=== PATIENT | female | born 1995 | race Caucasian/White ===

== ENCOUNTER 2019-01-18 05:11 | Emergency (ER) | payer BC ==
[2019-01-18] MEDS ORDERED: Famotidine 20 MG Tab PO ONE (05:43)
--- NOTE | 2019-01-18 05:50 | EDM.PDOC ---
ED HPI GENERAL MEDICAL PROBLEM - General Chief Complaint: Abdominal Pain Stated Complaint: abdominal pain Time Seen by Provider: 01/18/19 05:33 Source of Information: Reports: Patient, RN Notes Reviewed - History of Present Illness INITIAL COMMENTS - FREE TEXT/NARRATIVE: upper mid abd burning pain for the last 3 days. Has had this before but more bothersome the last 2 to 3 days. Occasional nausea. No vomiting or diarrhea. No melena or hematochezia. No hx of PUD. No chest pain or difficult breathing. Does not radiate to her back. Has been eating and drinking OK. Epigastric Pain Score (Numeric/FACES): 6 - Related Data Allergies Allergy/AdvReac Type Severity Reaction Status Date / Time No Known Allergies Allergy Verified 01/18/19 05:23 Home Meds: Home Meds Omeprazole 20 mg PO BIDAC #30 cap.sr 01/18/19 [Rx] Venlafaxine [Effexor XR] 150 mg PO DAILY 01/18/19 [History] Past Medical History - Past Health History Medical/Surgical History: Denies Medical/Surgical History Social & Family History - Tobacco Use Smoking Status *Q: Never Smoker ED ROS GENERAL - Review of Systems Review Of Systems: See Below HEENT: Reports: No Symptoms Respiratory: Denies: Shortness of Breath Cardiovascular: Denies: Chest Pain GI/Abdominal: Reports: Abdominal Pain, Nausea. Denies: Hematochezia, Melena, Vomiting Musculoskeletal: Denies: Back Pain Skin: Reports: No Symptoms Neurological: Reports: No Symptoms ED EXAM, GI/ABD - Physical Exam Exam: See Below General Appearance: Alert, No Apparent Distress Eyes: Bilateral: Normal Appearance Throat/Mouth: Normal Inspection, Normal Oropharynx Head: Atraumatic Neck: Supple Respiratory/Chest: No Respiratory Distress, Lungs Clear, Normal Breath Sounds Cardiovascular: Regular Rate, Rhythm GI/Abdominal Exam: Soft, Tender (very mild tenderness upper mid abd, remainder of abd nontender). No: Guarding, Rebound Back Exam: No: CVA Tenderness (L), CVA Tenderness (R) Extremities: Normal Inspection, Normal Range of Motion Neurological: Alert, Oriented, No Motor/Sensory Deficits Skin Exam: Warm, Dry, Normal Color Course - Vital Signs Last Recorded V/S: Last Vital Signs Temp 98.7 F 01/18/19 05:20 Pulse 80 01/18/19 05:20 Resp 16 01/18/19 05:20 BP 133/86 01/18/19 05:20 Pulse Ox 98 01/18/19 05:20 - Orders/Labs/Meds Meds: Medications Discontinued Medications Generic Name Dose Route Start Last Admin Trade Name Alexa PRN Reason Stop Dose Admin Famotidine 20 mg 01/18/19 05:43 Pepcid PO 01/18/19 05:44 ONETIME ONE Departure - Departure Time of Disposition: 05:44 Disposition: Home, Self-Care 01 Condition: Fair Clinical Impression: Gastritis Qualifiers: Gastritis type: unspecified gastritis Chronicity: acute Gastritis bleeding: without bleeding Qualified Code(s): K29.00 - Acute gastritis without bleeding - Discharge Information Prescriptions: Omeprazole 20 mg PO BIDAC #30 cap.sr Instructions: Gastritis, Adult, [id number] Referrals: Monica Benavides, [facility] [Primary Care Provider] - Forms: ED Department Discharge Additional Instructions: Avoid spicy foods for now, you have been given Pepcid 20 mg orally while here in the ED. Start omeprazole 20mg this morning and continue twice daily for 2 weeks or until gone. You may continue to use intermittent tums if needed for severe discomfort. Follow-up with Monica at the clinic in about one week for recheck, call for appointment. Return to ED as needed if symptoms worsening in any way.
== END 2019-01-18 05:55 | disposition home or self-care (01) ==
LOC: JD.ED 05:11
DX: K29.00 Acute gastritis without bleeding (principal); Z79.899 Other long term (current) drug therapy
CPT/HCPCS: 99282; 99283

== ENCOUNTER 2021-04-06 17:06 | Inpatient (IN) | payer BC ==
[2021-04-06] MEDS ORDERED: Nalbuphine 10 MG/1 ML Vial IVPUSH PRN (17:55)
[2021-04-06] MEDS ORDERED: Sodium Chloride 0.9% 10 ML Syringe FLUSH PRN (17:55)
[2021-04-06] MEDS ORDERED: Lidocaine 1% 50 ML MDV INJECT PRN (17:55)
[2021-04-06] MEDS ORDERED: Oxytocin/Lactated Ringers 10 UNIT/1,000 ML BAG IV SCH ×2 (18:00)
--- NOTE | 2021-04-06 20:54 | PCM.LDHP ---
L&D History of Present Illness - General Date of Service: 04/06/21 Admit Problem/Dx: Patient Status Order with Admit Dx/Problem 04/06/21 17:15 Patient Status [ADT] Routine 04/06/21 17:56 Patient Status [ADT] Routine Admission Diagnosis/Problem Admission Diagnosis/Problem 04/06/21 20:46 Nelly is a 25-year-old 1 para 0 female admitted on the evening of 04/06/2021 at 38-3/7 weeks gestational age with an PHU of 04/17/2021 in early labor with history of spontaneous rupture membranes occurring at 1400 hrs. today. Source of Information: Patient History Limitations: Reports: No Limitations - History of Present Illness Introduction:: Nelly is a 25-year-old 1 para 0 female admitted on the evening of 04/06/2021 at 38-3/7 weeks gestational age with an PHU of 04/17/2021 in early labor with history of spontaneous rupture membranes occurring at 1400 hrs. today. Is yandy every 3 to 5 minutes, mild in nature. Patient is tolerating these very well. She continues to lose amniotic fluid which is clear in nature. heart tones are reassuring. 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 Patient had menarche at the usual age of [age]. Cycles q. months. PHU of 04/17/2021 is based upon a certain last menstrual period started 07/11/2020 and supported by ultrasound evaluation. She denies any STIs. She denies any abnormal Pap smears. She is sexually active and was denies any control at the time of conception. course: First visit was at 10 weeks and 1 day on 09/20/2020. Patient was seen on a very regular basis throughout the . Weight gain was from 205 pounds to approximately 212 pounds. Fundal height growth was appropriate. Vital signs remained stable throughout the course. Ultrasounds x3 were consistent with dates. Baby's been active. No problems with the noted. Laboratory testing in : Blood is a negative with negative NM screen. First hemoglobin was 10.9. Platelets 248,000. She is rubella immune. RPR was nonreactive for IgM and IgG antibodies. Hepatitis B surface antigen was nonreactive as was hepatitis C. Chlamydia and gonorrhea were not detected on evaluations. Second trimester labs showed a hemoglobin of 10.9 with platelets of 248,000. 1 hour GTT is 151. 3-hour GTT value given in the chart was 136. The results of her total 3-hour GTT are not in the chart therefore not available but patient reports she is not a gestational diabetic. TSH on 12/13/2014 was 4.46. Group B strep screen was negative. Past medical history: 1. Depressionon medicationsEffexor presently. Past surgical history: 1. 5 nevi was removed for dysplastic appearance. 2. Tympanostomy with tube placement 3. [place] tooth extraction Family history: Mother and father are alive in generally good health. Sister and brother with no concerns. Maternal grandfather pancreatic cancer. Paternal grandmother with no known problems. Paternal grandfathers had a heart attack but is alive. Maternal uncle with melanoma and a great aunt on maternal side with melanoma. Social history: Patient is single. She is in his constant relationship with Paddy Calvo. She works at [employer] here in [employer]. She lives in [place]. She does not use any significant alcohol, drugs or tobacco. Review of systems: In general patient has no complaints. Is reporting leakage of fluid that is clear in nature. Some contractions noted. Baby has been active. Skin: Negative Lungs: No infectious symptoms or shortness of breath Cardiovascular: No chest pain or exercise intolerance Breasts: Changes associated with . No lumps, changes in size, pain, dimpling, discharge or axillary or supraclavicular concerns. GI: Negative : Body habitus changes associated with . Musculoskeletal: Negative Neurological: Negative In general the patient is well-developed, well-nourished, pleasant female of stated age in no acute distress. Skin is warm dry without lesions. HEENT, neck and back within normal limits. Lungs are clear with good breath sounds in all lung momin. Cardiovascular exam shows regular and rhythm without murmurs. Breast exam is deferred have been done early in the it is not repeated today as it was normal. Abdomen is gravid with a fundal height of 37 cm on last evaluation on 03/27/2021. Vertex presentation noted at that time. Genital per digital exam upon admission shows cervix to be 2+ centimeters, 80% effaced, -2 station, posterior position, soft, cephalic presentation. heart tones are reassuring. Extremities and neurological exam are grossly within normal limits. 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: Psychiatric History: Reports: Depression - Infectious Disease History Infectious Disease History: Reports: Novel Coronavirus Other Infectious Disease History: COVID-13 february 2021 - Past Surgical History HEENT Surgical History: Reports: Myringotomy w Tube(s), Oral Surgery Other HEENT Surgeries/Procedures: wisdom teeth 2019 Social & Family History - Family History Family Medical History: No Pertinent Family History - Tobacco Use Tobacco Use Status *Q: Never Tobacco User Second Hand Smoke Exposure: No H&P Review of Systems - Review of Systems: Review Of Systems: See Below L&D Exam - Exam Exam: See Below - Vital Signs Vital Signs: Last Vital Signs Temp 36.8 C 04/06/21 17:15 Pulse 84 04/06/21 18:30 Resp BP 118/73 04/06/21 17:15 Pulse Ox Weight: 93.894 kg - Patient Data Lab Results Last 24 hrs: Laboratory Results - last 24 hr 04/06/21 Range/Units 18:19 WBC 6.60 (3.98-10.04) K/mm3 RBC 4.10 (3.98-5.22) M/mm3 Hgb 10.3 L (11.2-15.7) gm/dl Hct 31.8 L (34.1-44.9) % MCV 77.6 L (79.4-94.8) fl MCH 25.1 L (25.6-32.2) pg MCHC 32.4 (32.2-35.5) g/dl RDW Std Deviation 39.4 (36.4-46.3) fL Plt Count 263 (182-369) K/mm3 MPV 8.9 L (9.4-12.3) fl Neut % (Auto) 66.0 (34.0-71.1) % Lymph % (Auto) 22.0 (19.3-51.7) % Mcmullen % (Auto) 10.6 (4.7-12.5) % Eos % (Auto) 0.8 (0.7-5.8) Baso % (Auto) 0.3 (0.1-1.2) % Neut # (Auto) 4.36 (1.56-6.13) K/mm3 Lymph # (Auto) 1.45 (1.18-3.74) K/mm3 Mcmullen # (Auto) 0.70 H (0.24-0.36) K/mm3 Eos # (Auto) 0.05 (0.04-0.36) K/mm3 Baso # (Auto) 0.02 (0.01-0.08) K/mm3 Result Diagrams: 04/06/21 18:19 - Problem List (1) 38 weeks gestation of SNOMED Code(s): 65913078 ICD Code: Z3A.38 - 38 WEEKS GESTATION OF Status: Acute Current Visit: Yes (2) Spontaneous rupture of amniotic membranes SNOMED Code(s): 949745406 ICD Code: [id number] - Status: Acute Current Visit: Yes Problem List Initiated/Reviewed/Updated: Yes Orders Last 24hrs: Active Orders 24 hr Category Date Time Status Patient Status [ADT] Routine ADT 04/06/21 17:56 Active Activity as Tolerated [RC] PFP Care 04/06/21 17:56 Active Communication Order [RC] ASDIRECTED Care 04/06/21 17:56 Active Heart Tones [RC] ASDIRECTED Care 04/06/21 17:56 Active Non Stress Test [RC] PER UNIT ROUTINE Care 04/06/21 17:15 Active Notify Provider [RC] PFP Care 04/06/21 17:56 Active Notify Provider [RC] PRN Care 04/06/21 17:56 Active Peripheral IV Care [RC] Q4HR Care 04/06/21 17:56 Active Urinary Catheter Assessment [RC] ASDIRECTED Care 04/06/21 17:55 Active Vital Signs [RC] PER UNIT ROUTINE Care 04/06/21 17:15 Active Regular Diet [DIET] Diet 04/06/21 Dinner Active BLOOD BANK HOLD SPECIMEN [BBK] Routine Lab 04/06/21 17:55 Ordered RAPID PLASMA REAGIN,RPR [CHEM] Routine Lab 04/06/21 18:19 Received Lactated Ringers [Ringers, Lactated] 1,000 ml Med 04/06/21 18:00 Active IV ASDIRECTED Lidocaine 1% [Xylocaine 1%] Med 04/06/21 17:55 Active 50 ml INJECT ONETIME PRN Nalbuphine [Nubain] Med 04/06/21 17:55 Active 10 mg IVPUSH Q2H PRN Oxytocin/Lactated Ringers [Pitocin in LR 10 Units/1,000 Med 04/06/21 18:00 Active ML] 10 unit in 1,000 ml IV .CONTINUOUS Oxytocin/Lactated Ringers [Pitocin in LR 10 Units/1,000 Med 04/06/21 18:00 Active ML] 10 unit in 1,000 ml IV TITRATE Sodium Chloride 0.9% [Saline Flush] Med 04/06/21 17:55 Active 10 ml FLUSH ASDIRECTED PRN Electronic Heart Tones Ext w TOCO [WOMSER] Oth 04/06/21 17:56 Ordered Routine Electronic Heart Tones Internal [WOMSER] Per Unit Oth 04/06/21 17:56 Ordered Routine Peripheral IV Insertion Adult [OM.PC] Routine Oth 04/06/21 17:56 Ordered Resuscitation Status Routine Resus Stat 04/06/21 17:15 Ordered Medication Orders Lactated Ringer's (Ringers, Lactated) 1,000 mls @ 100 mls/hr IV ASDIRECTED DEUCE Oxytocin/Lactated Ringer's (Pitocin In Lr 10 Units/1,000 Ml) 10 unit in 1,000 mls @ 500 mls/hr IV .CONTINUOUS DEUCE Oxytocin/Lactated Ringer's (Pitocin In Lr 10 Units/1,000 Ml) 10 unit in 1,000 mls @ 12 mls/hr IV TITRATE DEUCE; Protocol Lidocaine HCl (Lidocaine 1% 50 Ml Mdv) 50 ml INJECT ONETIME PRN PRN Reason: Other Nalbuphine HCl (Nalbuphine 10 Mg/1 Ml Vial) 10 mg IVPUSH Q2H PRN PRN Reason: Pain Sodium Chloride (Sodium Chloride 0.9% 10 Ml Syringe) 10 ml FLUSH ASDIRECTED PRN PRN Reason: Keep Vein Open Assessment/Plan Comment:: Casie Villegas is a 25-year-old 1 para 0 female admitted on the evening of 04/06/2021 at 38-3/7 weeks gestational age with an PHU of 04/17/2021 in early labor with history of spontaneous rupture membranes occurring at 1400 hrs. today. 2. Group B strep negative 3. Patient plans to breast-feed. 4. Patient is open for analgesiaepidural is okay with her. 5. Relatively low risk . Plan: 1. Anticipate 2. If no significant labor is noted by approximately 12 hours after spontaneous rupture membranes would recommend augmentation of labor with Pitocin. 3. Routine admission labs including Covid testing, CBC, RPR. 4. Epidural if patient desires. 5. Support breast-feeding decision.
[2021-04-06] MEDS: Lactated Ringers 1,000 ML IV SCH ×2 (21:05→22:07)
[2021-04-06] MEDS ORDERED: diphenhydrAMINE 50 MG/ML SDV IVPUSH PRN (21:06)
[2021-04-06] MEDS ORDERED: ePHEDrine 50 MG/ML SDV IVPUSH PRN (21:06)
[2021-04-06] MEDS ORDERED: fentaNYL 100 MCG/2 ML SDV EPIDUR PRN (21:06)
--- NOTE | 2021-04-06 21:20 | PCM.PREANE ---
Preanesthetic Assessment - Anesthesia/Transfusion/Family Hx Anesthesia History: No Prior Anesthesia Transfusion History: No Prior Transfusion(s) - Review of Systems General: No Symptoms Pulmonary: No Symptoms Cardiovascular: No Symptoms Gastrointestinal: No Symptoms Neurological: No Symptoms Other: Reports: None - Physical Assessment Vital Signs: Last Vital Signs Temp 98.2 F 04/06/21 17:15 Pulse 84 04/06/21 18:30 Resp BP 118/73 04/06/21 17:15 Pulse Ox Height: 1.57 m Weight: 93.894 kg ASA Class: 2 Mental Status: Alert & Oriented x3 Airway Class: Mallampati = 3 Dentition: Reports: Normal Dentition ROM/Head Extension: Full Lungs: Clear to Auscultation, Normal Respiratory Effort Cardiovascular: Regular Rate, Regular Rhythm - Lab Values: Laboratory Last Values WBC 6.60 K/mm3 (3.98-10.04) 04/06/21 18:19 RBC 4.10 M/mm3 (3.98-5.22) 04/06/21 18:19 Hgb 10.3 gm/dl (11.2-15.7) L 04/06/21 18:19 Hct 31.8 % (34.1-44.9) L 04/06/21 18:19 MCV 77.6 fl (79.4-94.8) L 04/06/21 18:19 MCH 25.1 pg (25.6-32.2) L 04/06/21 18:19 MCHC 32.4 g/dl (32.2-35.5) 04/06/21 18:19 RDW Std Deviation 39.4 fL (36.4-46.3) 04/06/21 18:19 Plt Count 263 K/mm3 (182-369) 04/06/21 18:19 MPV 8.9 fl (9.4-12.3) L 04/06/21 18:19 Neut % (Auto) 66.0 % (34.0-71.1) 04/06/21 18:19 Lymph % (Auto) 22.0 % (19.3-51.7) 04/06/21 18:19 [place] % (Auto) 10.6 % (4.7-12.5) 04/06/21 18:19 Eos % (Auto) 0.8 (0.7-5.8) 04/06/21 18:19 Baso % (Auto) 0.3 % (0.1-1.2) 04/06/21 18:19 Neut # (Auto) 4.36 K/mm3 (1.56-6.13) 04/06/21 18:19 Lymph # (Auto) 1.45 K/mm3 (1.18-3.74) 04/06/21 18:19 [place] # (Auto) 0.70 K/mm3 (0.24-0.36) H 04/06/21 18:19 Eos # (Auto) 0.05 K/mm3 (0.04-0.36) 04/06/21 18:19 Baso # (Auto) 0.02 K/mm3 (0.01-0.08) 04/06/21 18:19 RPR Non-reactive (NONREACTIVE) 04/06/21 18:19 - Allergies Allergies/Adverse Reactions: Allergies Allergy/AdvReac Type Severity Reaction Status Date / Time No Known Allergies Allergy Verified 01/18/19 05:23 - Acknowledgements Anesthesia Type Planned: Epidural Pt an Appropriate Candidate for the Planned Anesthesia: Yes Alternatives and Risks of Anesthesia Discussed w Pt/Guardian: Yes Pt/Guardian Understands and Agrees with Anesthesia Plan: Yes PreAnesthesia Questionnaire - Past Health History Medical/Surgical History: Denies 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: Psychiatric History: Reports: Depression - Infectious Disease History Infectious Disease History: Reports: Novel Coronavirus Other Infectious Disease History: COVID-13 february 2021 - Past Surgical History HEENT Surgical History: Reports: Myringotomy w Tube(s), Oral Surgery Other HEENT Surgeries/Procedures: wisdom teeth 2019 - SUBSTANCE USE Tobacco Use Status *Q: Never Tobacco User Second Hand Smoke Exposure: No - HOME MEDS Home Medications: Home Meds Venlafaxine [Effexor XR] 150 mg PO DAILY 01/18/19 [History] Pnv No.95/Ferrous Fum/Folic AC [ Vitamin Tablet] 1 each PO DAILY 04/06/21 [History] - CURRENT (IN HOUSE) MEDS Current Meds: Current Medications Diphenhydramine HCl (Diphenhydramine 50 Mg/Ml Sdv) 25 mg IVPUSH Q6H PRN PRN Reason: pruritis Ephedrine Sulfate (Ephedrine 50 Mg/Ml Sdv) 5 mg IVPUSH ASDIRECTED PRN PRN Reason: Hypotension Fentanyl (Fentanyl 100 Mcg/2 Ml Sdv) 100 mcg EPIDUR Q3H PRN PRN Reason: Pain Fentanyl/Bupivacaine HCl (Bupivacaine/Fentanyl/Ns 100 Ml Bag) 100 ml EPIDUR ASDIRECTED PRN PRN Reason: Pain Lactated Ringer's (Ringers, Lactated) 1,000 mls @ 100 mls/hr IV ASDIRECTED DEUCE Last Admin: 04/06/21 21:05 Dose: 900 mls/hr Documented by: Oxytocin/Lactated Ringer's (Pitocin In Lr 10 Units/1,000 Ml) 10 unit in 1,000 mls @ 500 mls/hr IV .CONTINUOUS DEUCE Oxytocin/Lactated Ringer's (Pitocin In Lr 10 Units/1,000 Ml) 10 unit in 1,000 mls @ 12 mls/hr IV TITRATE DEUCE; Protocol Lidocaine HCl (Lidocaine 1% 50 Ml Mdv) 50 ml INJECT ONETIME PRN PRN Reason: Other Nalbuphine HCl (Nalbuphine 10 Mg/1 Ml Vial) 10 mg IVPUSH Q2H PRN PRN Reason: Pain Sodium Chloride (Sodium Chloride 0.9% 10 Ml Syringe) 10 ml FLUSH ASDIRECTED PRN PRN Reason: Keep Vein Open
[2021-04-06] MEDS: Bupivacaine/fentaNYL/NS 100 ML Bag EPIDUR PRN (21:29)
[2021-04-07] MEDS ORDERED: Lidocaine 1.5% with EPINEPHrine 1:200,000 5 ML Amp ONE (02:00)
[2021-04-07] MEDS: Bupivacaine/fentaNYL/NS 100 ML Bag EPIDUR PRN (04:58)
[2021-04-07] MEDS ORDERED: Benzocaine/Menthol 20%-0.5% Spray 78 GM Cannister TOP PRN (12:55)
[2021-04-07] MEDS ORDERED: Acetaminophen 325 MG Tab PO PRN (12:55)
[2021-04-07] MEDS ORDERED: Ibuprofen 600 MG Tab PO PRN (12:55)
[2021-04-07] MEDS ORDERED: Docusate Sodium 100 MG Cap PO PRN (12:55)
[2021-04-07] MEDS ORDERED: Witch Hazel Medicated Pads 40/Jar TOP PRN (12:55)
--- NOTE | 2021-04-07 13:23 | PCM.SN.2 ---
- Free Text/Narrative Note: Delivery note: Stage I: Nelly is a 25-year-old 1 para now para 1-0-0-1 female admitted on the evening of 04/06/2021 at 38-3/7 weeks gestational age with an PHU of 04/17/2021 in early labor with history of spontaneous rupture membranes occurring at 1400 hrs on 04/06/2021. After monitoring for approximately 8 to 12 hours minimal contraction activity was noted and patient was started on Pitocin augmentation attempting to achieve delivery of the baby within 24 hours of the suspected SROM. She progressed slowly but steadily in labor and became completely dilated by approximately 0800 hrs. on 04/07/2021. Patient pushed for proxy 1-1/2 hours. She had an epidural placed for labor analgesia. She had goo d results with this. heart tones remained normal throughout the labor course. Stage II: Nelly delivered a viable, nwesome, male named Wade Saldivar at 0933 hours on 04/07/2021. The baby delivered in a direct occiput anterior position. There was external restitution to the right. Anterior shoulder was then delivered with gentle downward traction and posterior shoulder delivered w ith gentle upward traction. The baby then completely delivered and was placed on mom's abdomen. The baby had good heart rate, tone but was not crying aggressively so the cord was clamped x2 relatively quickly and cut by the baby's father. Baby was taken to the warmer for evaluation. O2 blow-by was used. Baby had Apgars of 4, 7 and 8 at 1 5 and 10 minutes respectively. The baby weighed 3657 g (8 pounds 1 ounce. Length was 19.5 inches. The umbilical cord had 3 vessels. Cord blood was obtained. Pitocin was increased to 500 cc an hour after delivery of the baby to facilitate increase uterine tone and decrease likelihood of bleeding. Stage III: The placenta delivered at 0945 hrs. in a [place] presentation. It appeared intact and complete and was discarded per patient desire. A small right-sided superficial vaginal laceration was repaired using 6 interrupted stitches of 3-0 Monocryl. Labor epidural analgesia was used for vaginal laceration anesthesia with good results. Patient tolerated this very well. Estimated blood loss was 200 cc. Condition: Good.
--- NOTE | 2021-04-07 16:28 | PCM48HPAN ---
Post Anesthesia Note - EVALUATION WITHIN 48HRS OF ANESTHETIC Vital Signs in Normal Range: Yes Patient Participated in Evaluation: Yes Respiratory Function Stable: Yes Airway Patent: Yes Cardiovascular Function Stable: Yes Hydration Status Stable: Yes Pain Control Satisfactory: Yes Nausea and Vomiting Control Satisfactory: Yes Mental Status Recovered: Yes Vital Signs: Last Vital Signs Temp 96.8 F L 04/07/21 13:52 Pulse 56 L 04/07/21 13:52 Resp 17 04/07/21 13:52 BP 124/73 04/07/21 13:52 Pulse Ox 99 04/07/21 13:52 - COMMENTS/OBSERVATIONS Free Text/Narrative:: No apparent anesthesia complications noted
--- NOTE | 2021-04-08 04:34 | PCM.SN.2 ---
- Free Text/Narrative Note: note: Patient is doing well in the period. Minimal lochia, voiding well, ambulated without problems. Nursing without concerns. Baby is in level 2 but doing well. Patient is afebrile, vital signs are stable Abdomen is flat, soft, uterus is below the umbilicus and is firm and nontender. Legs are nontender. Assessment: recovery going well. Plan: Routine care. Patient be discharged home within the next 24-48 hours.
--- NOTE | 2021-04-08 07:23 | PCM.DCSUM1 ---
Discharge Summary - Hospital Course Free Text/Narrative:: Stage I: Nelly is a 25-year-old 1 para now para 1-0-0-1 female admitted on the evening of 04/06/2021 at 38-3/7 weeks gestational age with an PHU of 04/17/2021 in early labor with history of spontaneous rupture membranes occurring at 1400 hrs on 04/06/2021. After monitoring for approximately 8 to 12 hours minimal contraction activity was noted and patient was started on Pitocin augmentation attempting to achieve delivery of the baby within 24 hours of the suspected SROM. She progressed slowly but steadily in labor and became completely dilated by approximately 0800 hrs. on 04/07/2021. Patient pushed for proxy 1-1/2 hours. She had an epidural placed for labor analgesia. She had good results with this. heart tones remained normal throughout the labor course. Stage II: Nelly delivered a viable, newsome, male named Wade Saldivar at 0933 hours on 04/07/2021. The baby delivered in a direct occiput anterior position. There was external restitution to the right. Anterior shoulder was then delivered with gentle downward traction and posterior shoulder delivered with gentle upward traction. The baby then completely delivered and was placed on mom's abdomen. The baby had good heart rate, tone but was not crying aggressively so the cord was clamped x2 relatively quickly and cut by the baby's father. Baby was taken to the warmer for evaluation. O2 blow-by was used. Baby had Apgars of 4, 7 and 8 at 1 5 and 10 minutes respectively. The baby weighed 3657 g (8 pounds 1 ounce. Length was 19.5 inches. The umbilical cord had 3 vessels. Cord blood was obtained. Pitocin was increased to 500 cc an hour after delivery of the baby to facilitate increase uterine tone and decrease likelihood of bleeding. Stage III: The placenta delivered at 0945 hrs. in a [place] presentation. It appeared intact and complete and was discarded per patient desire. A small right-sided superficial vaginal laceration was repaired using 6 interrupted stitches of 3-0 Monocryl. Labor epidural analgesia was used for vaginal laceration anesthesia with good results. Patient tolerated this very well. Estimated blood loss was 200 cc. patient has done very well. She is nursing and pumping well. Vital signs have been stable. She is afebrile. She is voiding well, has minimal lochia. She is ambulating well and is feeling fairly well. Baby is being transferred to [place] because of a prolonged QT interval and some tachycardia which is to be evaluated by cardiology. Patient and are anxious over this information. Otherwise that her condition is good. Diagnosis: Stroke: No - Discharge Data Discharge Date: 04/08/21 Discharge Disposition: Home, Self-Care 01 Condition: Good - Referral to Home Health Primary Care Physician: Monica Benavides NP - Discharge Diagnosis/Problem(s) (1) 38 weeks gestation of SNOMED Code(s): 33338441 ICD Code: Z3A.38 - 38 WEEKS GESTATION OF Status: Acute Current Visit: Yes (2) Spontaneous rupture of amniotic membranes SNOMED Code(s): 983461367 ICD Code: [id number] - Status: Acute Current Visit: Yes - Patient Instructions Diet: Regular Diet as Tolerated (Nursing diet with increased calories and calcium as discussed.) Activity: As Tolerated (No intercourse or tampons until bleeding resolves.) Driving: May Drive Today Showering/Bathing: May Shower (May take a bath) Notify Provider of: Fever, Increased Pain, Swelling and Redness, Nausea and/or Vomiting - Discharge Plan Home Medications: Home Meds Venlafaxine [Effexor XR] 150 mg PO DAILY 01/18/19 [History] Pnv No.95/Ferrous Fum/Folic AC [ Vitamin Tablet] 1 each PO DAILY 04/06/21 [History] Acetaminophen [Tylenol] 650 mg PO Q4H PRN tablet 04/08/21 [Rx] Ibuprofen [Motrin] 600 mg PO Q4H PRN tablet 04/08/21 [Rx] - Discharge Summary/Plan Comment DC Time >30 min.: No Total # of Minutes for Discharge Time: 10 Discharge Summary/Plan Comment: Discharge instructions: 1. Discharge home 2. Diet, activity and follow-up discussed with patient. Recommend nursing diet with increased calories and calcium. 3. Precautions given concern increased pain, bleeding, temperature, signs/symptoms of DVT/PE. 4. Medications per home medication was printed, discussed with and given to the patient. 5. Return to clinic-Dr. Jamil at [facility] within 1 week. Diagnosis: Term -delivered -baby has prolonged QT interval and is being transferred to [facility] in [place], [place]. Condition: Good - Patient Data Vitals - Most Recent: Last Vital Signs Temp 36.6 C 04/08/21 03:01 Pulse 69 04/08/21 03:01 Resp 16 04/08/21 03:01 BP 98/62 04/08/21 03:02 Pulse Ox 99 04/08/21 03:01 Weight - Most Recent: 93.894 kg Med Orders - Current: Current Medications Acetaminophen (Acetaminophen 325 Mg Tab) 650 mg PO Q4H PRN PRN Reason: mild pain or fever Benzocaine/Menthol (Benzocaine/Menthol 20%-0.5% Jackson 78 Gm Cannister) 0 gm TOP ASDIRECTED PRN PRN Reason: Perineal Comfort Measure Last Admin: 04/07/21 14:31 Dose: 1 canister Documented by: Docusate Sodium (Docusate Sodium 100 Mg Cap) 100 mg PO BID PRN PRN Reason: Constipation Ibuprofen (Ibuprofen 600 Mg Tab) 600 mg PO Q4H PRN PRN Reason: Mild pain or fever Prenat Multivit/[place]/Iron/Folic Ac ( Multivitamin With Calcium/Folic Acid/Iron Tab) 1 each PO DAILY DEUCE Venlafaxine HCl (Venlafaxine 75 Mg Cap.Er) 150 mg PO DAILY DEUCE [place] ([place] Medicated Pads 40/Jar) 1 pad TOP ASDIRECTED PRN PRN Reason: Perineal Comfort Measure Last Admin: 04/07/21 14:32 Dose: 1 container Documented by: Discontinued Medications Diphenhydramine HCl (Diphenhydramine 50 Mg/Ml Sdv) 25 mg IVPUSH Q6H PRN PRN Reason: pruritis Ephedrine Sulfate (Ephedrine 50 Mg/Ml Sdv) 5 mg IVPUSH ASDIRECTED PRN PRN Reason: Hypotension Fentanyl (Fentanyl 100 Mcg/2 Ml Sdv) 100 mcg EPIDUR Q3H PRN PRN Reason: Pain Last Admin: 04/06/21 21:40 Dose: 100 mcg Documented by: Fentanyl/Bupivacaine HCl (Bupivacaine/Fentanyl/Ns 100 Ml Bag) 100 ml EPIDUR ASDIRECTED PRN PRN Reason: Pain Last Admin: 04/07/21 04:58 Dose: 100 ml Documented by: Lactated Ringer's (Ringers, Lactated) 1,000 mls @ 100 mls/hr IV ASDIRECTED DEUCE Last Admin: 04/06/21 22:07 Dose: 900 mls/hr Documented by: Oxytocin/Lactated Ringer's (Pitocin In Lr 10 Units/1,000 Ml) 10 unit in 1,000 mls @ 500 mls/hr IV .CONTINUOUS DEUCE Last Infusion: 04/07/21 11:00 Dose: 100 mls/hr Documented by: Oxytocin/Lactated Ringer's (Pitocin In Lr 10 Units/1,000 Ml) 10 unit in 1,000 mls @ 12 mls/hr IV TITRATE DEUCE; Protocol Last Titration: 04/07/21 09:40 Dose: 83.33 munits/min, 499.98 mls/hr Documented by: Lidocaine HCl (Lidocaine 1% 50 Ml Mdv) 50 ml INJECT ONETIME PRN PRN Reason: Other Nalbuphine HCl (Nalbuphine 10 Mg/1 Ml Vial) 10 mg IVPUSH Q2H PRN PRN Reason: Pain Sodium Chloride (Sodium Chloride 0.9% 10 Ml Syringe) 10 ml FLUSH ASDIRECTED PRN PRN Reason: Keep Vein Open
[2021-04-08] MEDS ORDERED: Venlafaxine 75 MG Cap.ER PO SCH (09:00)
[2021-04-08] MEDS ORDERED: Prenatal Multivitamin with Calcium/Folic Acid/Iron Tab PO SCH (09:00)
== END 2021-04-08 07:30 | disposition home or self-care (01) | DRG 560 ==
LOC: JD.OBCHECK 17:06 → JD.OB 17:18 → JD.OBCHECK 17:55 → JD.OB 19:44 → OBSVTOIN 04-07 09:33 → JD.OB 04-07 13:59
PROVIDERS: ADMIT Obstetrics & Gynecology; ATTEND Obstetrics & Gynecology
PROC: 10E0XZZ Delivery of Products of Conception, External Approach (ICD-10-PCS; principal; 2021-04-07)
PROC: 3E0R3BZ Introduction of Anesthetic Agent into Spinal Canal, Percutaneous Approach (ICD-10-PCS; 2021-04-07)
PROC: 0HQ9XZZ Repair Perineum Skin, External Approach (ICD-10-PCS; 2021-04-07)
DX: O99.344 Other mental disorders complicating childbirth (principal); Z3A.38 38 weeks gestation of pregnancy; Z37.0 Single live birth; O70.0 First degree perineal laceration during delivery; F32.A Depression, unspecified
CPT/HCPCS: 01967; 36415; 51702; 59025; 59409; 85025; 86592; A9270-GY; J2590; J3010; J7120

== ENCOUNTER → 2021-06-14 | Day surgery (SDC) | payer BC ==
[~2021-06-14] MED LIST: Bupivacaine 0.5% 30 ML SDV ONE; Dexamethasone 4 MG/ML 5 ML MDV ONE; HYDROmorphone 0.5 MG/0.5 ML Syringe IVPUSH ONE; HYDROmorphone 0.5 MG/0.5 ML Syringe IVPUSH PRN; HYDROmorphone 0.5 MG/0.5 ML Syringe ONE; Lactated Ringers 1,000 ML ONE; Lidocaine 1% 4 ML ONE; Midazolam 1 MG/ML 2 ML SDV ONE; Ondansetron 4 MG/2 ML SDV IVPUSH ONE; Ondansetron 4 MG/2 ML SDV IVPUSH PRN; Ondansetron 4 MG/2 ML SDV ONE; Propofol 200 MG/20 ML SDV ONE; Rocuronium 50 MG/5 ML Vial ONE; Scopolamine 1.5 MG Transdermal Patch TRDERM STA; Sodium Chloride 0.9% 1,000 ML IV SCH; Sodium Chloride 0.9% 10 ML Syringe FLUSH PRN; ceFAZolin 1 GM Vial ONE; fentaNYL 100 MCG/2 ML SDV IVPUSH PRN; fentaNYL 250 MCG/5 ML SDV ONE; oxyCODONE 5 MG Tab PO ONE
== END | disposition home or self-care (01) ==
LOC: JD.ED 10:18 → JD.SDS 12:52
PROVIDERS: ATTEND Surgery
DX: K80.10 Calculus of gallbladder with chronic cholecystitis without obstruction (principal); F32.A Depression, unspecified; Z79.899 Other long term (current) drug therapy; Z86.16 Personal history of COVID-19; Z98.890 Other specified postprocedural states
CPT/HCPCS: 36415; 47562; 76705; 80053; 81001; 81025; 82977; 83690; 83735; 85025; 86140; A9270; J0690; J1100; J1170; J2250; J2405; J2704; J2710; J3010; J3490; J7030; J7120; 00790; 99140; 99285